=== PATIENT | female | born 1980 | race Two or more races ===

== ENCOUNTER 2022-04-23 02:58 | Emergency (ER) | payer OTHER ==
[~2022-04-23] VITALS: Ht 154.9 cm; Wt 94.5 kg
[2022-04-23 03:16] VITALS: BP 127/87
[2022-04-23] MEDS ORDERED: METF-1211 PO (03:21)
[2022-04-23] MEDS ORDERED: ACETAMINOPHEN 500 MG TABLET PO ONE (03:30)
== END 2022-04-23 04:37 | disposition home or self-care (01) ==
LOC: EMS 03:00
DX: R07.89 Other chest pain (principal); E11.9 Type 2 diabetes mellitus without complications; V89.2XXA Person injured in unspecified motor-vehicle accident, traffic, initial encounter; Y93.89 Activity, other specified; Y92.89 Other specified places as the place of occurrence of the external cause; Y99.8 Other external cause status; Z98.84 Bariatric surgery status
CPT/HCPCS: 71045; 99283